=== PATIENT | male | born 1980 | race Caucasian/White ===

== ENCOUNTER 2016-10-16 10:55 | Emergency (ER) | payer BC ==
[~2016-10-16] VITALS: Ht 182.9 cm; Wt 94.3 kg
[2016-10-16 11:02] VITALS: TEMP 36.9; Ht 182.9 cm; Wt 94.3 kg
[2016-10-16 11:41] LABS: BASO % 0.4 %; BASO ABS # 0.02 K/uL (0-0.2); COMPLETE YES; EOS % 3.3 %; HEMATOCRIT 39.3 % (42-52); IG% 0.2 %; LYMPH % 41.5 %; LYMPH ABS # 1.99 K/uL (1.2-3.4); MEAN CELL VOLUME 94.5 fL (80-100); MEAN CORPUSCULAR HEMOGLOBIN 33.2 pg (25-34); MEAN CORPUSCULAR HGB CONC 35.1 g/dl (32-36); MEAN PLATELET VOLUME 10.3 fL (7.4-10.4); MONO % 9.2 %; NEUT % 45.4 %; PLATELET COUNT 278 K/uL (130-400); RED BLOOD COUNT 4.16 M/uL (4.7-6.1); WHITE BLOOD COUNT 4.79 K/uL (4.8-10.8)
[2016-10-16 11:49] LABS: URINE APPEARANCE CLEAR (CLEAR); URINE BILIRUBIN NEG (NEG); URINE COLOR YELLOW; URINE NITRITE NEG (NEG); URINE PH 5.5 (4.5-7.5); URINE SPECIFIC GRAVITY 1.022 (1.000-1.030); UROBILINOGEN NEG (NEG); ZZUR CULT IF INDIC CLEAN CATCH NO
[2016-10-16 11:54] LABS: PARTIAL THROMBOPLASTIN RATIO 1.2; PROTHROMBIN TIME (PATIENT) 10.3 SECONDS (9.0-12.0)
[2016-10-16 11:56] LABS: BUN/CREATININE RATIO 12.1 (10-20); CALCIUM 8.9 mg/dl (8.5-10.1)
[2016-10-16 11:57] LABS: MANUAL MICROSCOPIC REQUIRED? NO; REVIEW REQ? NO
[2016-10-16 11:59] LABS: ALB/GLOB RATIO 1.3 (0.9-2)
[2016-10-16] MEDS ORDERED: SODIUM CHLORIDE 0.9% 1000ML 1,000 ML IV STA (13:21)
--- NOTE | 2016-10-16 13:24 | EMERGENCY ROOM VISIT NOTE ---
History First contact with patient: 12:57 Chief Complaint: ABDOMINAL PAIN Stated Complaint: ABD PAIN, BLOOD IN STOOL Nursing Triage Summary: pt here with low abd pain, left sided. pt states also having maroon blood in stool this am. History of Present Illness The patient is a 36 year old male who presents to the Emergency Room with complaints of abdominal pain. The patient states he has had left lower quadrant abdominal pain for several days. He states he noticed maroon colored stool this morning. He states he had only one episode. He states that he had diarrhea last weekend but that seemed to resolve. The patient has also been on antibiotics recently. He denies any recent travel. He denies any fevers. He denies any pain in his chest or trouble breathing. He rates his discomfort a 6/ 10. He denies any urinary symptoms. He denies any history of bowel diseases. He states he has had a colonoscopy and was told he has diverticulosis. Review of Systems A 10 system review of systems was completed with positives and pertinent negatives listed in the HPI. Past Medical/Surgical History Medical Problems: (1) Hemorrhoids Family History FHx: heart disease Hypertension Kidney disease Kidney stones Social History Smoking Status: Never Smoker Alcohol Use: occasionally Drug Use: none Housing Status: lives with family Occupation Status: employed Current/Historical Medications No Active Prescriptions or Reported Meds Allergies Coded Allergies: No Known Allergies (Unverified , 10/16/16) Physical Exam Vital Signs Date Time Temp Pulse Resp B/P Pulse Ox O2 Delivery O2 Flow Rate FiO2 10/16/16 14:55 66 18 128/74 98 Room Air 10/16/16 13:45 70 16 130/75 98 Room Air 10/16/16 12:11 72 10/16/16 12:10 68 18 127/70 99 Room Air 10/16/16 11:25 99 Room Air 10/16/16 11:02 36.9 89 16 120/79 97 Room Air Physical Exam VITALS: Vitals are noted on the nurse's note and reviewed by myself. Vital signs stable. The patient is afebrile. He is not hypotensive or tachycardic. GENERAL: This is a 36-year-old male, in no acute distress, nondiaphoretic, well- developed well-nourished. SKIN: The skin was without rashes, erythema, edema, or bruising. There is no tenting of the skin. Capillary reflex less than 2 seconds. HEAD: Normocephalic atraumatic. EARS: The external ears are normal in appearance. EYES: Pupils equal round and reactive to light and accommodation. Conjunctivae without injection, sclerae without icterus. Extraocular movements intact. NOSE: Patent, turbinates without inflammation or discharge. MOUTH: Mucous membranes moist. Tonsils are not enlarged. Pharynx without erythema or exudate. Uvula midline. Airway patent. Tongue does not deviate. NECK: Supple without nuchal rigidity. No lymphadenopathy. No thyromegaly. Cervical spine is nontender. No JVD. HEART: Regular rate and rhythm without murmurs gallops or rubs. LUNGS: Clear to auscultation bilaterally without wheezes, rales or rhonchi. No retractions or accessory muscle use. ABDOMEN: Positive bowel sounds x 4. Soft, moderate left lower quadrant tenderness, without masses or organomegaly. MUSCULOSKELETAL: No muscle atrophy, erythema, or edema noted. Full range of motion in all extremities. Normal gait. Strength 5/5 throughout. NEURO: Patient was alert and oriented to person place and time. No focal neurological deficits. Medical Decision & Procedures ER Provider Diagnostic Interpretation: [~ rep ct add3]] ABDOMEN AND PELVIS CT WITH IV CONTRAST CT DOSE: 413.39 mGy.cm HISTORY: Pain ll. Pain TECHNIQUE: Multiaxial CT images of the abdomen and pelvis were performed following the use of intravenous contrast. COMPARISON STUDY: 07/20/2011 FINDINGS: Lung bases are clear. Liver is uniform throughout. Gallbladder is negative for distention. Kidneys enhance uniformly. Spleen is unremarkable. Pelvic structures are within normal limits. Bowel pattern is nonobstructive IMPRESSION: No significant abnormality identified within the abdomen or pelvis. Laboratory Results 10/16/16 11:25 Red Blood Count 4.16, Mean Corpuscular Volume 94.5, Mean Corpuscular Hemoglobin 33.2, Mean Corpuscular Hemoglobin Concent 35.1, Mean Platelet Volume 10.3, Neutrophils (%) (Auto) 45.4, Lymphocytes (%) (Auto) 41.5, Monocytes (%) (Auto) 9.2, Eosinophils (%) (Auto) 3.3, Basophils (%) (Auto) 0.4, Neutrophils # (Auto) 2.17, Lymphocytes # (Auto) 1.99, Monocytes # (Auto) 0.44, Eosinophils # (Auto) 0.16, Basophils # (Auto) 0.02 10/16/16 11:25 Test 10/16/16 11:25 10/16/16 12:05 White Blood Count 4.79 K/uL (4.8-10.8) Red Blood Count 4.16 M/uL (4.7-6.1) Hemoglobin 13.8 g/dL (14.0-18.0) Hematocrit 39.3 % (42-52) Mean Corpuscular Volume 94.5 fL (80-100) Mean Corpuscular Hemoglobin 33.2 pg (25-34) Mean Corpuscular Hemoglobin Concent 35.1 g/dl (32-36) Platelet Count 278 K/uL (130-400) Mean Platelet Volume 10.3 fL (7.4-10.4) Neutrophils (%) (Auto) 45.4 % Lymphocytes (%) (Auto) 41.5 % Monocytes (%) (Auto) 9.2 % Eosinophils (%) (Auto) 3.3 % Basophils (%) (Auto) 0.4 % Neutrophils # (Auto) 2.17 K/uL (1.4-6.5) Lymphocytes # (Auto) 1.99 K/uL (1.2-3.4) Monocytes # (Auto) 0.44 K/uL (0.11-0.59) Eosinophils # (Auto) 0.16 K/uL (0-0.5) Basophils # (Auto) 0.02 K/uL (0-0.2) RDW Standard Deviation 42.7 fL (36.4-46.3) RDW Coefficient of Variation 12.5 % (11.5-14.5) Immature Granulocyte % (Auto) 0.2 % Immature Granulocyte # (Auto) 0.01 K/uL (0.00-0.02) Prothrombin Time 10.3 SECONDS (9.0-12.0) Prothromb Time International Ratio 1.0 (0.9-1.1) Activated Partial Thromboplast Time 31.3 SECONDS (21.0-31.0) Partial Thromboplastin Ratio 1.2 Urine Color YELLOW Urine Appearance CLEAR (CLEAR) Urine pH 5.5 (4.5-7.5) Urine Specific [place] 1.022 (1.000-1.030) Urine Protein NEG (NEG) Urine Glucose (UA) NEG (NEG) Urine Ketones NEG (NEG) Urine Occult Blood NEG (NEG) Urine Nitrite NEG (NEG) Urine Bilirubin NEG (NEG) Urine Urobilinogen NEG (NEG) Urine Leukocyte Esterase NEG (NEG) Anion Gap 7.0 mmol/L (3-11) Est Creatinine Clear Calc Drug Dose 122.9 ml/min Estimated GFR () 112.5 Estimated GFR (Non- 97.1 BUN/Creatinine Ratio 12.1 (10-20) Calcium Level 8.9 mg/dl (8.5-10.1) Magnesium Level 2.3 mg/dl (1.8-2.4) Total Bilirubin 0.3 mg/dl (0.2-1) Aspartate Amino Transf (AST/SGOT) 31 U/L (15-37) Alanine Aminotransferase (ALT/SGPT) 75 U/L (12-78) Alkaline Phosphatase 76 U/L (45-117) Total Protein 8.1 gm/dl (6.4-8.2) Albumin 4.5 gm/dl (3.4-5.0) Globulin 3.6 gm/dl (2.5-4.0) Albumin/Globulin Ratio 1.3 (0.9-2) Lipase 96 U/L (73-393) Stool Occult Blood NEGATIVE (NEGATIVE) Medications Administered Medications (Trade) Dose Ordered Sig/Sana Route Start Time Stop Time Status Last Admin Dose Admin Sodium Chloride (Nss 1000ml) 1,000 ml @ 999 mls/hr Q1H1M STAT IV 10/16/16 13:21 10/16/16 14:21 DC 10/16/16 13:46 999 MLS/HR ECG Indication: abdominal pain Rate (beats per minute): 64 Rhythm: normal sinus Findings: 1st degree AV block Comparison ECG Date: no prior available ED Course The patient was seen and examined. Previous visits were reviewed. The patient does not have a fever or leukocytosis. She does not have any significant electrolyte abnormalities. Lipase was not elevated. INR was 1.0. Urinalysis was negative for urinary tract infection or hematuria. Stool was negative for blood. A C. difficile could not be run because the stool was formed. Additional stool studies are pending. CT scan of the abdomen and pelvis does not reveal any obvious abnormality The patient presents to the emergency department with left lower quadrant abdominal pain. He also reports an episode of bloody stool this morning. He does not have any diarrhea in his stool is guaiac-negative. The above workup does not reveal any obvious abnormality. The exact etiology for his symptoms is not clear at this time. The patient states he has an appointment scheduled with gastroenterology and to keep this appointment. He should return to the emergency Department with any worsening symptoms. The case was discussed with Dr. Verma who agrees with the assessment and treatment plan. Medical Decision DIFFERENTIAL DIAGNOSIS: Hepatitis, cholecystitis, cholangitis, biliary colic, pancreatitis, pneumonia, subdiaphragmatic abscess, appendicitis, inguinal hernia , nephrolithiasis, inflammatory bowel disease, mesenteric adenitis, peptic ulcer disease, GERD, gastritis, pancreatitis, myocardial infarction, pericarditis, ruptured aortic aneurysm, appendicitis, gastroenteritis, bowel obstruction, splenic infarct, diverticulitis, mesenteric ischemia, metabolic, peritonitis, among others. Impression Primary Impression: Abdominal pain Departure Information Dispostion Home / Self-Care Condition GOOD Prescriptions No Active Prescriptions or Reported Meds Referrals Jose Alejandro Bagley, D.O. (PCP) Patient Instructions Abdominal Pain, [facility] Additional Instructions Follow up with GI as scheduled Return with any fevers, worsening pain, otherwise worsening symptoms We will contact you if the stool cultures indicate the need for change in treatment Problem Qualifiers Primary Impression: Abdominal pain Abdominal location: left lower quadrant Qualified Codes: R10.32 - Left lower quadrant pain
[2016-10-16] MEDS ORDERED: OPTIRAY 320 IV PRN (13:30)
--- NOTE | 2016-10-16 14:51 | DIAGNOSTIC IMAGING REPORT ---
ABDOMEN AND PELVIS CT WITH IV CONTRAST CT DOSE: 413.39 mGy.cm HISTORY: Pain ll. Pain TECHNIQUE: Multiaxial CT images of the abdomen and pelvis were performed following the use of intravenous contrast. COMPARISON STUDY: 07/20/2011 FINDINGS: Lung bases are clear. Liver is uniform throughout. Gallbladder is negative for distention. Kidneys enhance uniformly. Spleen is unremarkable. Pelvic structures are within normal limits. Bowel pattern is nonobstructive IMPRESSION: No significant abnormality identified within the abdomen or pelvis. Electronically signed by: Noble Dela Cruz M.D. 10/16/2016 2:49 PM Dictated Date/Time: 10/16/2016 2:42 PM
[2016-10-16 14:55] VITALS: BP 128/74; PULSE 66; O2SAT 98
[2016-10-25 12:06] LABS: CRYPTOSPORIDIUM AG TC 37213 NOT DETECTED (NOT DETECTED); ISOSPORA+CYCLOSPORA NOT DETECTED; O&P GIARDIA AG NOT DETECTED (NOT DETECTED); O&P SOURCE OTHER-STOOL
== END 2016-10-16 15:05 | disposition home or self-care (01) ==
LOC: C.EDB 10:57 → C.EDC 15:05
DX: R10.32 Left lower quadrant pain (principal); R19.5 Other fecal abnormalities

== ENCOUNTER 2016-12-30 02:59 | Emergency (ER) | payer BC ==
[~2016-12-30] VITALS: Ht 182.9 cm; Wt 92.0 kg
[2016-12-30 03:03] VITALS: Ht 182.9 cm; Wt 92.0 kg
[2016-12-30] MEDS ORDERED: LORAZEPAM 1 MG TAB PO STA (03:13)
--- NOTE | 2016-12-30 03:17 | EMERGENCY ROOM VISIT NOTE ---
History Report prepared by Elías: Joseph Mcintosh Under the Supervision of: Dr. Travis Mims D.O. First contact with patient: 03:06 Chief Complaint: RESPIRATORY PROBLEMS Stated Complaint: HARD TO INHALE, NUMB HANDS History of Present Illness The patient is a 36 year old male who presents to the Emergency Room with complaints of difficulty breathing that began roughly 30 minutes prior to arrival. The patient states that he "cannot inhale." He also complains of numbness in his face and hands. The patient began to experience these symptoms when he woke up this morning. He tried to take a shower to relieve his shortness of breath, but he states that this worsened his condition. The patient notes that the has been playing video games for the past 30 hours and has only slept for two hours. Source of History: patient Onset: 30 minutes prior to arrival Position: other (Respiratory) Quality: other (difficulty breathing) Associated Symptoms: + numbness (Hands and face) Review of Systems See HPI for pertinent positives and negatives. A total of ten systems were reviewed and were otherwise negative. Past Medical & Surgical Medical Problems: (1) Hemorrhoids Family History FHx: heart disease Hypertension Kidney disease Kidney stones Social History Smoking Status: Never Smoker Alcohol Use: occasionally Drug Use: none Housing Status: lives with family Occupation Status: employed Current/Historical Medications No Active Prescriptions or Reported Meds Allergies Coded Allergies: No Known Allergies (Unverified , 10/16/16) Physical Exam Vital Signs Date Time Temp Pulse Resp B/P Pulse Ox O2 Delivery O2 Flow Rate FiO2 12/30/16 03:03 36.3 119 24 145/85 100 Room Air Physical Exam GENERAL: Awake, alert, and severely anxious appearing. HENT: Normocephalic, atraumatic. Oropharynx unremarkable. EYES: Normal conjunctiva. Sclera non-icteric. NECK: Supple. No nuchal rigidity. FROM. No JVD. RESPIRATORY: Clear to auscultation. CARDIAC: Regular rate, normal rhythm. Extremities warm and well perfused. Pulses equal. ABDOMEN: Soft, non-distended. No tenderness to palpation. No rebound or guarding. No masses. RECTAL: Deferred. MUSCULOSKELETAL: Chest examination reveals no tenderness. The back is symmetrical on inspection without obvious abnormality. There is no CVA tenderness to palpation. No joint edema. LOWER EXTREMITIES: Calves are equal size bilaterally and non-tender. No edema. No discoloration. NEURO: Normal sensorium. No sensory or motor deficits noted. SKIN: No rash or jaundice noted. Medical Decision & Procedures ER Provider Diagnostic Interpretation: X ray results as stated below per my interpretation and radiologist interpretation. Other radiology results as stated below per my review and radiologist interpretation CHEST X-RAY: Findings: A chest x-ray was performed and revealed no pneumothorax, effusion, infiltrate, pulmonary edema, free air under the diaphragm, or wide mediastinum. Medications Administered Medications (Trade) Dose Ordered Sig/Sana Route Start Time Stop Time Status Last Admin Dose Admin Lorazepam (Ativan Tab) 1 mg NOW STAT PO 12/30/16 03:13 12/30/16 03:15 DC 12/30/16 03:21 1 MG ECG Indication: SOB/dyspnea Rate (beats per minute): 87 Rhythm: normal sinus Findings: 1st degree AV block, no acute ischemic change ED Course 0309: The patient was evaluated in room B10. A complete history and physical exam was performed. 0313: Ordered Lorazepam 1 mg PO. 0401: I reevaluated the patient. His shortness of breath is now completely resolved. I discussed results and discharge instructions: He verbalized understanding and agreement. The patient is ready for discharge. Medical Decision Differential Diagnosis includes: Anxiety, hyperventilation, bronchitis, upper respiratory infection. Resting in no distress on repeat examination no longer anxious not tachypneic is smiling in no distress. Impression Primary Impression: Hyperventilation syndrome Additional Impression: Anxiety Scribe Attestation The scribe's documentation has been prepared under my direction and personally reviewed by me in its entirety. I confirm that the note above accurately reflects all work, treatment, procedures, and medical decision making performed by me. Departure Information Dispostion Home / Self-Care Prescriptions Lorazepam (ATIVAN) 1 Mg Tab 1 MG PO TID Y for Anxiety, #10 TAB Prov: Travis Mims, DO 12/30/16 Referrals Jose Alejandro Bagley, D.O. (PCP) Patient Instructions Anxiety Disorder, [facility] Problem Qualifiers
[2016-12-30] MEDS ORDERED: ATV/1 PO (04:03)
[2016-12-30 04:09] VITALS: BP 128/73; PULSE 86; TEMP 36.3; O2SAT 100
--- NOTE | 2016-12-30 07:55 | DIAGNOSTIC IMAGING REPORT ---
SINGLE VIEW CHEST CLINICAL HISTORY: Dyspnea. FINDINGS: An AP, portable, upright chest radiograph is obtained. No prior studies are available for comparison at the time of dictation. The examination is degraded by portable technique and patient rotation. The cardiomediastinal silhouette is unremarkable. The lungs and pleural spaces are clear. No pneumothorax is seen. The bony thorax is grossly intact. IMPRESSION: No active disease in the chest. Electronically signed by: Juan José Nathan M.D. 12/30/2016 7:53 AM Dictated Date/Time: 12/30/2016 7:53 AM
== END 2016-12-30 04:10 | disposition home or self-care (01) ==
LOC: C.EDB 03:01
DX: R06.00 Dyspnea, unspecified (principal); R20.0 Anesthesia of skin; F45.8 Other somatoform disorders; F41.9 Anxiety disorder, unspecified; I44.0 Atrioventricular block, first degree; Z82.49 Family history of ischemic heart disease and other diseases of the circulatory system